=== PATIENT | male | born 1960 | race Caucasian/White ===

== ENCOUNTER 2022-08-30 13:30 | Emergency (ER) | payer MEDICAID ==
[~2022-08-30] VITALS: Ht 165.1 cm; Wt 77.3 kg
[2022-08-30] MEDS ORDERED: DOXYCYCLINE HYCLATE 100 MG TABLET PO ONE (14:00)
[2022-08-30] MEDS ORDERED: CefTRIAXone SODIUM 1 GM/VIAL IM ONE (14:00)
[2022-08-30] MEDS ORDERED: LIDOCAINE/PF 1% 2 ML VIAL IM ONE (14:00)
[2022-08-30] MEDS ORDERED: DOXY-354 PO (14:19)
[2022-08-30] MEDS ORDERED: CEPH-558 PO (14:19)
[2022-08-30 14:40] VITALS: BP 133/76
== END 2022-08-30 14:48 | disposition home or self-care (01) ==
LOC: EMS 13:35
DX: S80.861A Insect bite (nonvenomous), right lower leg, initial encounter (principal); L03.115 Cellulitis of right lower limb; W57.XXXA Bitten or stung by nonvenomous insect and other nonvenomous arthropods, initial encounter; Y93.89 Activity, other specified; Y92.89 Other specified places as the place of occurrence of the external cause; Y99.8 Other external cause status
CPT/HCPCS: 99283; 96372; J0696; J3490

== ENCOUNTER 2022-11-09 11:00 | Emergency (ER) | payer MEDICAID ==
[~2022-11-09] VITALS: Ht 167.6 cm; Wt 81.8 kg
[~2022-11-09 11:00] MED LIST: CEPH-558 PO; DOXY-354 PO
[2022-11-09 11:30] VITALS: BP 152/104
[2022-11-09] MEDS ORDERED: CLIN-142 PO (11:36)
[2022-11-09] MEDS ORDERED: KETOROLAC TROMETHAMINE 30 MG/ML VIAL IM ONE (11:45)
[2022-11-09] MEDS ORDERED: HYDROCODONE/ACETAMINOPHEN 5-325 MG TABLET PO ONE (11:45)
[2022-11-09] MEDS ORDERED: ATOR40TA71 PO (19:57)
[2022-11-09] MEDS ORDERED: HYDR-4723 PO ×2 (20:36→20:47)
[2022-11-09] MEDS ORDERED: NYST100033 PO ×2 (20:36→20:47)
[2022-11-09] MEDS ORDERED: IBUP-1554 PO ×2 (20:36→20:47)
== END 2022-11-09 13:15 | disposition home or self-care (01) ==
LOC: EMS 11:05
DX: K08.89 Other specified disorders of teeth and supporting structures (principal); Z88.0 Allergy status to penicillin
CPT/HCPCS: 99283; 96372; J1885

== ENCOUNTER 2022-11-09 19:51 | Emergency (ER) | payer MEDICAID ==
[~2022-11-09] VITALS: Ht 167.6 cm; Wt 81.8 kg
[~2022-11-09 19:51] MED LIST changes: +CLIN-142 PO
[2022-11-09] MEDS ORDERED: ATOR40TA71 PO (19:57)
[2022-11-09] MEDS ORDERED: KETOROLAC TROMETHAMINE 60 MG/2 ML VIAL IM ONE (20:30)
[2022-11-09] MEDS ORDERED: IBUP-1554 PO ×2 (20:36→20:47)
[2022-11-09] MEDS ORDERED: NYST100033 PO ×2 (20:36→20:47)
[2022-11-09] MEDS ORDERED: HYDR-4723 PO ×2 (20:36→20:47)
[2022-11-09 20:52] VITALS: BP 139/92
== END 2022-11-09 20:52 | disposition home or self-care (01) ==
LOC: EMS 19:51
DX: K08.89 Other specified disorders of teeth and supporting structures (principal); B37.9 Candidiasis, unspecified; Z88.0 Allergy status to penicillin
CPT/HCPCS: 99283; 96372; J1885